=== PATIENT | female | born 1995 | race African-American/Black ===

== ENCOUNTER 2019-07-20 03:03 | Emergency (ER) | payer SELFPAY ==
[~2019-07-20] VITALS: Ht 170.2 cm; Wt 93.0 kg
--- NOTE | 2019-07-20 03:34 | NUR ---
Dr Hope at bedside for MSE.
--- NOTE | 2019-07-20 04:00 | NUR ---
Patient discharged to home in stable conditon. Written and verbal after care instructions given. Patient verbalizes understanding of instructions. Pt ambulated out of ER with stable gait. All belongings with patient. No acute distress noted.
[2019-07-20 04:01] VITALS: BP 118/64
== END 2019-07-20 04:00 | disposition home or self-care (01) ==
LOC: ER 03:08
DX: J20.9 Acute bronchitis, unspecified (principal); Z88.8 Allergy status to other drugs, medicaments and biological substances
CPT/HCPCS: A4663